=== PATIENT | female | born 1945 | race Hispanic/Latino ===

== ENCOUNTER 2019-06-21 13:15 | Inpatient (IN) | payer MEDICARE, SELFPAY ==
[2019-06-21] MEDS ORDERED: Acetaminophen 500 MG TAB ONE (13:46)
[2019-06-21] MEDS ORDERED: cefTRIAXone\\ROCEPHIN 2 GM VIAL ONE (13:46)
--- NOTE | 2019-06-21 14:01 | RAD ---
XR Chest 1 View Portable HISTORY: Left-sided chest pain COMPARISON: None FINDINGS: The heart size is enlarged. No lobar consolidation, pneumothoraces, adi pulmonary edema o r large effusions are seen.
[2019-06-21 14:03] LABS: #Eosinphils 0.1 thou/uL (0.0-0.7); #Lymphocytes 0.7 thou/uL (1.20-3.40); #Monocytes 0.3 thou/uL (0.11-0.59); #Neutrophils 12.4 thou/uL (1.40-6.50); %Basophils 0.2 % (0.0-1.0); %Lymphocytes 5.2 % (21.0-51.0); %Monocytes 1.9 % (0.0-10.0); %Neutrophils 91.6 % (42.0-75.0); Hemoglobin 13.7 g/dL (12.0-16.0); Mean Corpuscular HGB CONC 34.2 g/dL (32.0-36.0); Mean Corpuscular Hemoglobin 30.7 pg (27.0-31.0); Mean Corpuscular Volume 89.6 fL (78.0-98.0); Mean Platelet Volume 9.3 fL (7.4-10.4); Platelet Count 215 thou/uL (130-400); RBC Distribution Width 12.2 % (11.5-14.5); Red Blood Cell (RBC) Count 4.45 mill/uL (4.20-5.40); White Blood Cell (WBC) Count 13.5 thou/uL (4.8-10.8)
[2019-06-21 14:30] LABS: ALT (SGPT) 13 U/L (8-55); AST (SGOT) 16 U/L (5-34); Albumin 4.3 g/dL (3.4-4.8); Alkaline Phosphatase 96 U/L (40-150); Anion Gap 15 mmol/L (10-20); BUN (Urea Nitrogen) 15 mg/dL (9.8-20.1); Bilirubin, Total 1.2 mg/dL (0.2-1.2); Calc. Creatinine Clearance 0 mL/min (70-130); Calcium 9.7 mg/dL (7.8-10.44); Carbon Dioxide 25 mmol/L (23-31); Chloride 101 mmol/L (98-107); Estimated GFR-MDRD 80; Globulin 3.2 g/dL (2.4-3.5); Glucose 97 mg/dL (83-110); Lipase 20 U/L (8-78); Potassium 3.6 mmol/L (3.5-5.1); Protein, Total 7.5 g/dL (6.0-8.3); Sodium 137 mmol/L (136-145)
--- NOTE | 2019-06-21 14:46 | CT ---
CT BRAIN NONCONTRAST: DATE: 06/21/19 HISTORY: 73-year-old female with convulsions. FINDINGS: There is no midline shift or any other mass effect. There is no evidence of acute intracranial hemor rhage, large cortical infarct, obstructive hydrocephalus, or extraaxial fluid collection. The calvar ium is intact. IMPRESSION: No acute intracranial findings. jn [] POS: [facility]
[2019-06-21 15:05] LABS: Bilirubin Negative (Negative); Blood, Urine Trace (Negative); Clarity Clear (Clear); Glucose, Urine (Dipstick) Normal (Negative); Leukocyte Negative Leu/uL (Negative); Nitrite 2+ (Negative); Protein, Urine (Dipstick) Negative (Neg-Trace); RBC/HPF 0-3 HPF (0-3); Squamous Epithelial None Seen HPF (0-3); Urobilinogen Normal mg/dL (Less than 2); WBC/HPF 0-3 HPF (0-3)
[2019-06-21 15:20] LABS: Bacteria/HPF None Seen HPF (None Seen)
--- NOTE | 2019-06-21 17:32 | CT ---
CT abdomen and pelvis noncontrast HISTORY: Flank pain. FINDINGS: Each renal collecting system, ureter, and urinary bladder are decompressed without stone ap parent. Lack of contrast limits evaluation for other abnormalities. Small exophytic cyst projecting superiorl y from the superior pole of the left kidney. Small focus of calcification at the inferior margin. Calcification throughout the arterial structures. Motion artifact obscures detail. Gallbladder surgic ally absent. Diverticula arise from the colon without adjacent inflammation. Degenerative changes lumbar spine. IMPRESSION: No CT evidence of urinary tract obstruction or calcification. Atherosclerosis. Diverticulosis. No evidence of diverticulitis.
[2019-06-21 19:50] VITALS: BMI 32.8
[2019-06-21] MEDS ORDERED: Ondansetron PF 4 MG/2 ML Vial IVP PRN ×2 (19:52→22:47)
[2019-06-21] MEDS ORDERED: Ondansetron ODT 4 MG TAB SL PRN (19:52)
[2019-06-21] MEDS ORDERED: Acetaminophen 325 MG TAB PO PRN (22:47)
[2019-06-21] MEDS ORDERED: Ondansetron ODT 4 MG TAB PO PRN (22:47)
[2019-06-21] MEDS ORDERED: Acetaminophen 650 MG Suppository PR PRN (22:47)
[2019-06-21] MEDS ORDERED: Senokot S 8.6-50 MG TAB PO PRN (22:47)
[2019-06-21] MEDS: Sodium Chloride 0.9% 1,000 ML IV SCH (23:06)
[2019-06-22] MEDS: Sodium Chloride 0.9% 1,000 ML IV SCH (02:38)
--- NOTE | 2019-06-22 04:26 | HP ---
CHIEF COMPLAINT: Fever and chills. HISTORY OF PRESENT ILLNESS: She was recently treated by her doctor in [place] for a urinary tract infection. The patient states she has had several urinary infections in the past, but until recently has started experiencing chills and fevers when she develops a UTI, which did not use to happen. She states that she is feeling significantly better since receiving the first dose of IV antibiotics in the ER. She was given Rocephin as well as vancomycin. The patient reports having some mild epigastric discomfort. Denies any actual chest pain. Also denies any pain in her arm, though this was stated on the ED note. She denies any trouble with her breathing. Has not had a cough and denies any hemoptysis. Denies any lower leg edema. She does have some mild swelling of the right lower extremity due to history of varicose veins, but she states has been longstanding and stable. Overall, she feels very well at this present time and is without any complaints. The only thing she has noted recently is urinary frequency, but she denies any dysuria or hematuria. The chills have subsided and she has had no further fever. The patient states she had a very mild headache earlier today, which was a 2/10 in severity without any associated visual disturbances or speech disturbances. It has since subsided. REVIEW OF SYSTEMS: The patient denies any constipation, melena, or bright red blood in stools. Reports having a good appetite. Reports maintaining adequate hydration at home. Denies having any other complaints apart from those mentioned above in HPI. PAST MEDICAL HISTORY: 1. Arthritis. 2. Osteoporosis. PAST SURGICAL HISTORY: Cholecystectomy. SOCIAL HISTORY: The patient denies any smoking history, alcohol use, or illicit drug use. ALLERGIES: NO KNOWN DRUG ALLERGIES. CURRENT MEDICATIONS: 1. Cervilan. This was prescribed in [place] and is a vasoconstrictor, which apparently treats peripheral vascular disease and cerebral insufficiency. 2. Nootropil. This is used to treat myoclonus. 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 According to the patient, these were prescribed due to occasional dizziness she was experiencing. She did not undergo any type of imaging, therefore had a CT of the brain done in the emergency department, which showed no acute intracranial findings. PHYSICAL EXAMINATION: GENERAL: The patient appears well developed, well nourished, is in no acute distress. She is resting comfortably in bed. VITAL SIGNS: Temperature 98.8, pulse 69, respirations 16, O2 saturation 95% on room air, blood pressure 119/56. HEENT: Normocephalic and atraumatic. Pupils are equal, round, and reactive to light. Sclerae icterus. Oropharynx is clear. NECK: Supple. LUNGS: Clear to auscultation bilaterally without any wheezes, rales, or rhonchi. CARDIAC: Regular rate and rhythm. ABDOMEN: Soft, nontender, nondistended. Normoactive bowel sounds present. EXTREMITIES: No lower leg swelling or edema. Mechanical SCDs were in place and removed for assessment. They were put back in place after exam. INVESTIGATIONS: Laboratory studies as mentioned above. Chest x-ray showed an enlarged heart, but no lobar consolidation, pneumothoraces, pulmonary edema or large effusion seen. IMPRESSION AND PLAN: Ms. Hernandez is a very pleasant 73-year-old woman, who presents with fevers and chills and has been referred for management of the followin. Urinary tract infection. The patient was started on IV meropenem and vancomycin. Noted to have a white count of 13.5 with a lactic acid of 1.9. Laboratory studies otherwise normal. Urinalysis was notable for trace blood and 2+ nitrites. No bacteria seen and leukocyte esterase negative. Urine culture was requested. Chest x-ray negative for any pulmonary source of infection. CT of the abdomen and pelvis was done to assess for any possible underlying kidney stone given the frequency of her UTIs. There was a small exophytic cyst projecting superiorly from the superior pole of the left kidney with a small focus of calcification at the inferior margin. Diverticula present without any evidence of diverticulitis. There was no CT evidence of urinary tract obstruction or calcification. We will repeat laboratory studies in the morning and continue to monitor patient overnight. 2. History of dizziness. The patient on medications prescribed as mentioned above in [place]. She is not feeling dizzy at this time. However, CT of the brain was done and was unremarkable. We will continue to monitor patient. 3. Gastrointestinal prophylaxis. 4. Deep venous thrombosis prophylaxis with mechanical SCDs. 5. Code status full. Her surrogate decision maker is her granddaughter, Jojo Hendrix. The patient's case to be discussed with attending for further recommendations. Job ID: [id number]
[2019-06-22 06:17] LABS: #Eosinphils 0.2 thou/uL (0.0-0.7); #Lymphocytes 1.5 thou/uL (1.20-3.40); #Monocytes 0.5 thou/uL (0.11-0.59); #Neutrophils 7.4 thou/uL (1.40-6.50); %Basophils 0.5 % (0.0-1.0); %Eosinophils 2.2 % (0.0-10.0); %Lymphocytes 15.9 % (21.0-51.0); %Monocytes 4.9 % (0.0-10.0); %Neutrophils 76.5 % (42.0-75.0); Hemoglobin 11.6 g/dL (12.0-16.0); Mean Corpuscular HGB CONC 34.8 g/dL (32.0-36.0); Mean Corpuscular Hemoglobin 31.4 pg (27.0-31.0); Mean Corpuscular Volume 90.3 fL (78.0-98.0); Mean Platelet Volume 8.4 fL (7.4-10.4); Platelet Count 187 thou/uL (130-400); RBC Distribution Width 12.2 % (11.5-14.5); Red Blood Cell (RBC) Count 3.68 mill/uL (4.20-5.40); White Blood Cell (WBC) Count 9.7 thou/uL (4.8-10.8)
[2019-06-22 06:36] LABS: Anion Gap 10 mmol/L (10-20); BUN (Urea Nitrogen) 9 mg/dL (9.8-20.1); Calc. Creatinine Clearance 91 mL/min (70-130); Calcium 8.3 mg/dL (7.8-10.44); Carbon Dioxide 25 mmol/L (23-31); Chloride 109 mmol/L (98-107); Estimated GFR-MDRD Greater than 90; Glucose 90 mg/dL (83-110); Potassium 3.5 mmol/L (3.5-5.1); Sodium 140 mmol/L (136-145)
[2019-06-22] MEDS ORDERED: Bisacodyl 10 MG SUPP PR PRN (07:43)
[2019-06-22] MEDS ORDERED: Cepastat Lozenges 1 LOZ PO PRN (07:43)
[2019-06-22] MEDS ORDERED: HYDROcodone/Acetaminophen 5/325 mg Tablet PO PRN (07:43)
[2019-06-22] MEDS ORDERED: Artificial Tears 18 DROP/0.9 ML EA EYE PRN (07:43)
[2019-06-22] MEDS ORDERED: Sodium Chloride 0.65% Nasal 44 ML BOT EA NARE PRN (07:43)
[2019-06-22] MEDS ORDERED: Loratadine 10 MG TAB PO PRN (07:43)
[2019-06-22] MEDS ORDERED: Loperamide HCl 2 MG CAP PO PRN (07:43)
[2019-06-22] MEDS ORDERED: hydrALAZINE 20 MG/ML VIAL SLOW IVP PRN (07:43)
[2019-06-22] MEDS ORDERED: Diabetic Tussin 200 MG/10 ML UDCUP PO PRN (07:43)
[2019-06-22] MEDS ORDERED: Zolpidem Tartrate 5 MG TAB PO PRN (07:43)
[2019-06-22] MEDS ORDERED: Famotidine/PF 20 mg/2ml Vial SLOW IVP SCH (09:00)
--- NOTE | 2019-06-22 11:45 | PDOC.HOSPP ---
- Subjective Subjective: Patient seen and examined. No new complaints. No overnight events - Objective Vital Signs & Weight: Vital Signs (12 hours) Temp Pulse Resp BP Pulse Ox 06/22/19 11:08 97.5 F L 82 15 109/57 L 95 06/22/19 07:27 98.5 F 70 20 107/52 L 95 06/22/19 02:43 99.3 F 68 16 122/59 L 96 Weight Weight 146 lb 3.2 oz I&O: 06/21/19 06/22/19 06/23/19 06:59 06:59 06:59 Intake Total 1199 Output Total 1240 Balance -41 Result Diagrams: 06/22/19 06:07 06/22/19 06:07 ROS - Review of Systems All systems: All other ROS were reviewed and found negative. ENT: denies: ear pain, ear discharge, nose pain, nose discharge, nose congestion , mouth pain, mouth swelling, throat pain, throat swelling, other Respiratory: denies: cough, dry, shortness of breath, hemoptysis, SOB with excertion, pleuritic pain, sputum, wheezing, other Cardiovascular: denies: chest pain, palpitations, orthopnea, paroxysmal noc. dyspnea, edema, light headedness, other Gastrointestinal: denies: nausea, vomitting, abdominal pain, diarrhea, constipation, melena, hematochezia, other Genitourinary: denies: dysuria, frequency, incontinence, hematuria, retention, other Musculoskeletal: denies: neck pain, shoulder pain, arm pain, back pain, hand pain, leg pain, foot pain, other Skin: denies: rash, lesions, essie, bruising, other - Exam NAD, awake alert Eye: PERRL, anicteric sclera ENT: normocephalic atraumatic, no oropharyngeal lesions Neck: symmetric, no JVD Heart: RRR, no murmur, no gallops, no rubs Respiratory: CTAB, no wheezes, no rales, no ronchi Gastrointestinal: soft, non-tender, non-distended, normal bowel sounds Extremities: no cyanosis, no clubbing, no edema Skin: normal turgor, no lesions Neurological: CN's grossly intact, no focal deficits Musculoskeletal: normal tone, normal strength Psychiatric: normal affect, normal behavior, A&O x 3 Hosp A/P (1) Bacteremia, escherichia coli Code(s): R78.81 - BACTEREMIA Status: Acute (2) Sepsis Code(s): A41.9 - SEPSIS, UNSPECIFIED ORGANISM Status: Acute (3) UTI (urinary tract infection) Status: Acute (4) Anemia, normocytic normochromic Code(s): D64.9 - ANEMIA, UNSPECIFIED Status: Chronic (5) Obesity (BMI 30.0-34.9) Code(s): E66.9 - OBESITY, UNSPECIFIED Status: Chronic (6) Osteoporosis Code(s): M81.0 - AGE-RELATED OSTEOPOROSIS W/O CURRENT PATHOLOGICAL FRACTURE Status: Chronic - Plan old records reviewed/req, plan discussed w/ family, continue antibiotics continue rocephin follow up on culture result change to inpt status medication reviewed as below symptomatic treatment
[2019-06-22] MEDS: cefTRIAXone\\ROCEPHIN 1 GM in Sodium Chloride 0.9% 100 ML IVPB SCH (13:11)
[2019-06-22] MEDS ORDERED: Vancomycin HCl 1 GM in Premix Bag 1 BAG IVPB SCH (15:00)
--- NOTE | 2019-06-23 09:59 | PDOC.HOSPP ---
- Subjective Subjective: Patient seen and examined. No new complaints. No overnight events - Objective Vital Signs & Weight: Vital Signs (12 hours) Temp Pulse Resp BP Pulse Ox 06/23/19 07:53 98.5 F 73 16 121/59 L 95 06/23/19 04:45 98.1 F 69 16 122/58 L 94 L Weight Admit Weight 146 lb 3.2 oz Weight 146 lb 3.2 oz I&O: 06/22/19 06/23/19 06/24/19 06:59 06:59 06:59 Intake Total 1199 Output Total 1240 Balance -41 Result Diagrams: 06/22/19 06:07 06/22/19 06:07 ROS - Review of Systems All systems: All other ROS were reviewed and found negative. Constitutional: denies: fever, chills, sweats, weakness, malaise, other ENT: denies: ear pain, ear discharge, nose pain, nose discharge, nose congestion , mouth pain, mouth swelling, throat pain, throat swelling, other Respiratory: denies: cough, dry, shortness of breath, hemoptysis, SOB with excertion, pleuritic pain, sputum, wheezing, other Cardiovascular: denies: chest pain, palpitations, orthopnea, paroxysmal noc. dyspnea, edema, light headedness, other Gastrointestinal: denies: nausea, vomitting, abdominal pain, diarrhea, constipation, melena, hematochezia, other Genitourinary: denies: dysuria, frequency, incontinence, hematuria, retention, other Musculoskeletal: denies: neck pain, shoulder pain, arm pain, back pain, hand pain, leg pain, foot pain, other Skin: denies: rash, lesions, essie, bruising, other - Medication Medications: Active Medications Generic Name Dose Route Start Last Admin Trade Name Freq PRN Reason Stop Dose Admin Ceftriaxone Sodium 1 gm/ 100 mls @ 200 mls/hr 06/22/19 14:00 06/22/19 13:11 Sodium Chloride IVPB 100 mls Q24HR GEORGE Administration - Exam NAD, awake alert Eye: PERRL, anicteric sclera ENT: normocephalic atraumatic, no oropharyngeal lesions Neck: supple, symmetric, no JVD Heart: RRR, no murmur, no gallops Respiratory: CTAB, no wheezes, no rales, no ronchi Gastrointestinal: soft, non-tender, non-distended, normal bowel sounds Extremities: no cyanosis, no clubbing, no edema Skin: normal turgor, no lesions, no rashes Neurological: CN's grossly intact, normal sensation to touch, no focal deficits Musculoskeletal: normal tone, normal strength, no muscle wasting Psychiatric: normal affect, normal behavior, A&O x 3 Hosp A/P (1) Bacteremia, escherichia coli Code(s): R78.81 - BACTEREMIA Status: Acute (2) Sepsis Code(s): A41.9 - SEPSIS, UNSPECIFIED ORGANISM Status: Acute (3) UTI (urinary tract infection) Status: Acute (4) Anemia, normocytic normochromic Code(s): D64.9 - ANEMIA, UNSPECIFIED Status: Chronic (5) Obesity (BMI 30.0-34.9) Code(s): E66.9 - OBESITY, UNSPECIFIED Status: Chronic (6) Osteoporosis Code(s): M81.0 - AGE-RELATED OSTEOPOROSIS W/O CURRENT PATHOLOGICAL FRACTURE Status: Chronic - Plan old records reviewed/req, plan discussed w/ family, continue antibiotics continue rocephin today and tomorrow will consider discharge tomorrow on oral omnicef medication reviewed as below symptomatic treatment
[2019-06-23] MEDS: cefTRIAXone\\ROCEPHIN 1 GM in Sodium Chloride 0.9% 100 ML IVPB SCH (13:03)
[2019-06-24 08:34] VITALS: BP 122/58; TEMP 97.5
--- NOTE | 2019-06-24 11:52 | DIS ---
DATE OF ADMISSION: 06/22/2019 DATE OF DISCHARGE: 06/24/2019 PRIMARY CARE PHYSICIAN: Dr. Naldo Ayon. DISCHARGE DISPOSITION: Home. PRIMARY DISCHARGE DIAGNOSES: 1. Sepsis. 2. Urinary tract infection. 3. Bacteremia due to Escherichia coli. SECONDARY DISCHARGE DIAGNOSES: Normocytic normochromic anemia, obesity with body mass index 32, osteoporosis. PRIMARY PROCEDURE/OPERATION: None. RADIOLOGICAL INVESTIGATION: Abdomen and pelvis CT scan unremarkable. CT brain negative. Chest x-ray normal. SIGNIFICANT LABORATORY DATA: Hemoglobin 11.6. Creatinine 0.57. Electrolytes and LFT normal. Cardiac enzyme negative. Urinalysis suggestive UTI. Urine culture negative. Blood culture grew E. coli. Influenza screen negative. DISCHARGE MEDICATION: 1. Omnicef 300 mg p.o. b.i.d. for 7 more days. 2. Fosamax 70 mg weekly as per home dosage. CONTRAINDICATION: None. CODE STATUS: Full code. INPATIENT FOOD BEVERAGE SUPERVISOR: None. ALLERGIES: NO KNOWN DRUG ALLERGIES. DISCHARGE PLAN: Posthospital, the patient will follow up with primary care physician in 1 week. HOSPITAL COURSE: A 73-year-old female with above-mentioned medical problem, who was admitted by Yana Mera. Please see her H and P for further details. The patient was meeting sepsis criteria. She was having fever. Her urinalysis was consistent with UTI. CT abdomen and pelvis stone protocol were negative for any kidney stone or obstruction. Her chest x-ray and CT brain on admission were normal. She was admitted to telemetry floor. She was treated with Rocephin as her urine culture was negative, but her blood culture came back positive for E. coli 1/2 was positive, and it was sensitive to Rocephin. On discharge, we changed to Omnicef for another 7 days. The patient remained afebrile while in hospital. She remained hemodynamically stable. I have seen and examined the patient at bedside today. Her vitals are stable. Her examination is normal. All new medication prescription sent to her pharmacy and the patient will follow up with primary care physician in 1 week. Job ID: [id number]
== END 2019-06-24 10:40 | disposition home or self-care (01) | DRG 872 ==
LOC: ERS 13:15 → 2SW 19:22 → OBSVTOIN 06-22 07:39
PROVIDERS: ADMIT Internal Medicine; ATTEND Internal Medicine
DX: A41.51 Sepsis due to Escherichia coli [E. coli] (principal); N39.0 Urinary tract infection, site not specified; M19.90 Unspecified osteoarthritis, unspecified site; M81.0 Age-related osteoporosis without current pathological fracture; D64.9 Anemia, unspecified; E66.9 Obesity, unspecified; Z68.32 Body mass index [BMI] 32.0-32.9, adult; Z90.49 Acquired absence of other specified parts of digestive tract
CPT/HCPCS: 36415; 70450; 71045; 74176; 80048; 80053; 81003; 81015; 83605; 83690; 83880; 84484; 85025; 87040; 87077; 87086; 87149; 87186; 87804; 93005; 94760; J0696; J3370; J3490